=== PATIENT | male | born 1940 | race Caucasian/White ===

== ENCOUNTER → 2023-11-08 08:33 | Outpatient (REF) | payer MEDICARE, OTHER, SELFPAY ==
[2023-11-08 08:46] VITALS: BP 137/79; BP_SYST 80
== END ==
LOC: RADI 08:33
PROVIDERS: ATTENDING PHYSICIAN Nurse Practitioner Family
DX: D11.0 Benign neoplasm of parotid gland (principal)
CPT/HCPCS: 88305; 42400; 76942; 88333

== ENCOUNTER → 2025-07-30 10:50 | Outpatient (REF) | payer MEDICARE, OTHER, SELFPAY | LOC: EMG 10:50 | PROVIDERS: ATTENDING PHYSICIAN Orthopaedic Surgery Hand Surgery; FAMILY PHYSICIAN Family Medicine | DX: G56.02 Carpal tunnel syndrome, left upper limb (principal); R20.0 Anesthesia of skin | CPT/HCPCS: 95886; 95910 ==

== ENCOUNTER → 2025-09-02 07:19 | Outpatient (REF) | payer MEDICARE, OTHER, SELFPAY | LOC: HWRCS 07:19 | PROVIDERS: ATTENDING PHYSICIAN Internal Medicine; FAMILY PHYSICIAN Family Medicine | DX: Z01.810 Encounter for preprocedural cardiovascular examination (principal); R94.31 Abnormal electrocardiogram [ECG] [EKG]; E78.2 Mixed hyperlipidemia; Z87.891 Personal history of nicotine dependence | CPT/HCPCS: 93306 ==

== ENCOUNTER → 2025-09-14 07:18 | Outpatient (REF) | payer MEDICARE, OTHER, SELFPAY | LOC: HWRCS 07:18 | PROVIDERS: ATTENDING PHYSICIAN Internal Medicine; FAMILY PHYSICIAN Family Medicine | DX: Z01.810 Encounter for preprocedural cardiovascular examination (principal); R94.31 Abnormal electrocardiogram [ECG] [EKG]; E78.2 Mixed hyperlipidemia; Z87.891 Personal history of nicotine dependence | CPT/HCPCS: 78452; 93017; A9500; J2785 ==